=== PATIENT | male | born 1990 | race African-American/Black ===

== ENCOUNTER 2019-07-15 15:28 | Emergency (ER) | payer MEDICAID ==
[~2019-07-15] VITALS: Ht 175.3 cm; Wt 131.8 kg
[2019-07-15 16:33] VITALS: BP 185/139
== END 2019-07-15 17:04 | disposition home or self-care (01) ==
LOC: EMS 15:32
DX: I10 Essential (primary) hypertension (principal); G51.0 Bell's palsy; F17.200 Nicotine dependence, unspecified, uncomplicated; F12.90 Cannabis use, unspecified, uncomplicated
CPT/HCPCS: 70450